=== PATIENT | male | born 1975 | race Caucasian/White ===

== ENCOUNTER 2018-06-12 09:23 | Day surgery (SDC) | payer OTHER ==
[~2018-06-12] VITALS: Ht 180.3 cm; Wt 122.7 kg
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
[2018-06-12] MEDS ORDERED: PRINIVIL20 MG (09:31)
[2018-06-12] MEDS ORDERED: PROZAC20 MG PO (09:31)
[2018-06-12] MEDS ORDERED: TRAZODONE HCL150 MG PO (09:31)
[2018-06-12 10:07] LABS: ALKALINE PHOSPHATASE 88 U/L (46-116); ALT (SGPT) 60 U/L (10-68); CALC OSMOLALITY 276 mosm/kg (275-300); CALCIUM 9.5 mg/dL (8.5-10.1); CARBON DIOXIDE 23.5 mmol/L (21.0-32.0); CHLORIDE - SERUM 100 mmol/L (98-107); CREATININE - SERUM 0.9 mg/dL (0.6-1.3); GLUCOSE 128 mg/dL (74-106); POTASSIUM - SERUM 3.7 mmol/L (3.5-5.1); PROTEIN - SERUM 7.6 g/dL (6.4-8.2); SODIUM 138 mmol/L (136-145); UREA NITROGEN 10 mg/dL (7-18); eGFR NON AFRICAN AMERICAN > 90 mL/min (90-120)
[2018-06-12 10:08] LABS: APTT 25.8 SECONDS (22.8-39.4); INR 0.89 (0.85-1.17); PROTIME 11.7 SECONDS (11.6-15.0)
[2018-06-12 10:12] LABS: BASOPHILS 0.6 % (0-2); EOSINOPHILS 1.1 % (0-7); HEMATOCRIT 44.4 % (42.0-54.0); HEMOGLOBIN 16.3 g/dL (13.5-17.5); IMMATURE GRANULOCYTES 0.6 % (0-5); LYMPHOCYTES 37.9 % (15-50); MCH 33.5 pg (26.0-34.0); MCHC 36.7 g/dL (31.0-37.0); MCV 91.4 fL (80.0-100.0); MEAN PLATELET VOLUME 10.3 fL (7.4-10.4); MONOCYTES 11.5 % (2-11); NEUTROPHILS 48.3 % (40-80); PLATELET COUNT 255 10x3/uL (130-400); RBC 4.86 10x6/uL (4.20-6.10); RDW 12.2 % (11.5-14.5); WBC 10.5 10x3/uL (4.8-10.8)
[2018-06-12 10:25] LABS: CREATINE KINASE 71 UL (21-232)
[2018-06-12 10:30] LABS: TROPONIN-I < 0.017 ng/mL (0.000-0.060)
[2018-06-12 10:50] LABS: UDS - AMPHET NEGATIVE QUAL (NEGATIVE); UDS - BARB NEGATIVE QUAL (NEGATIVE); UDS - BENZO NEGATIVE QUAL (NEGATIVE); UDS - COCAINE NEGATIVE QUAL (NEGATIVE); UDS - OPIATE POSITIVE QUAL (NEGATIVE); UDS - PCP NEGATIVE QUAL (NEGATIVE); UDS - THC POSITIVE QUAL (NEGATIVE)
[2018-06-12 10:59] LABS: APPEARANCE CLEAR (CLEAR); BACTERIA FEW /hpf (NONE SEEN); BILIRUBIN NEGATIVE (NEGATIVE); COLOR YELLOW (YELLOW); EPITHELIAL CELLS RARE /hpf (0-5); GLUCOSE NEGATIVE (NEGATIVE); KETONE NEGATIVE (NEGATIVE); MUCUS <1+ /lpf (NONE SEEN); NITRITE NEGATIVE (NEGATIVE); PROTEIN 1+ mg/dL (NEGATIVE); RED CELLS - URINE RARE /hpf (0-5); TALC POWDER CRYSTALS RARE /hpf (NONE SEEN)
[2018-06-12 13:13] VITALS: Ht 180.3 cm; Wt 122.7 kg
[2018-06-12 14:45] VITALS: BP 135/80
[2018-06-12] MEDS ORDERED: NORCO 10-325 TA1 TAB PO (16:13)
[2018-06-12] MEDS ORDERED: KEFLEX500 MG PO (16:13)
== END 2018-06-12 18:15 | disposition home or self-care (01) ==
LOC: D.OPS 09:23 → D.ER 09:23 → EDSTATUS 13:36 → D.OPS 18:15
PROVIDERS: Family Medicine
DX: S31.110A Laceration without foreign body of abdominal wall, right upper quadrant without penetration into peritoneal cavity, initial encounter (principal); W33.02XA Accidental discharge of hunting rifle, initial encounter; I10 Essential (primary) hypertension; F32.9 Major depressive disorder, single episode, unspecified